=== PATIENT | female | born 1960 | race Caucasian/White ===

== ENCOUNTER 2020-04-12 07:05 | Outpatient (NON) | payer BC, SELFPAY ==
[2020-04-12 14:38] LABS: Influenza Control Positive
[2020-04-12 21:50] LABS: SARS-CoV-2 RNA PCR Positive
== END 2020-04-12 07:06 ==
LOC: ANHCOVIDDT 07:05
PROVIDERS: PCP Family Medicine; Visit Provider Family Medicine
DX: U07.1 COVID-19 (principal)
CPT/HCPCS: 87804; C9803; U0003; U0005

== ENCOUNTER 2020-05-06 16:00 | Outpatient (CLI) | payer BC, SELFPAY ==
--- NOTE | ~2020-05-06 | MM_ITS ---
EXAMINATION: MM screening ned BI w bhumi HISTORY: Screening mammogram TECHNIQUE: Craniocaudal and mediolateral oblique 3-D tomosynthesis images were obtained and synthetic 2-D images were generated. CAD analysis was submitted and interpreted. COMPARISON: 03/01/2019, 01/02/2018, 10/07/2016, 08/28/2015, 06/07/2014, 06/05/2013, 05/18/2012, 04/07/2011, , 06/20/2007 bilateral digital screening mammogram examinations BREAST PARENCHYMAL COMPOSITION: There are scattered areas of fibroglandular density. FINDINGS: There is a biopsy marker posteriorly in the outer mid left breast; history of prior benign left breast biopsy. Stable mild fibroglandular asymmetry. There is no evidence of suspicious mass, ca lcification, or architectural distortion to suggest malignancy in either breast. There has been no valdivia spicious interval change. IMPRESSION: 1. No mammographic evidence of malignancy. 2. Recommend routine screening mammography in one year. BI-RADS Category 2: Benign finding(s). Reviewed, dictated and finalized at location A. [employer]
== END 2020-05-06 16:01 | disposition home or self-care (01) ==
PROVIDERS: PCP Family Medicine; Visit Provider Nurse Practitioner
DX: Z12.31 Encounter for screening mammogram for malignant neoplasm of breast (principal)
CPT/HCPCS: 77063; 77067

== ENCOUNTER 2020-10-08 07:01 | Outpatient (CLI) | payer BC, SELFPAY ==
--- NOTE | ~2020-10-08 | MR_ITS ---
EXAMINATION: MR lumbar spine wo con DATE: 10/08/2020 08:27 INDICATION: Lumbar radiculopathy. Low back pain. TECHNIQUE: Magnetic resonance imaging (MRI) of the lumbar spine was performed without intravenous con trast. Sequences included sagittal T2-weighted FSE, sagittal T2-weighted FS FSE, sagittal T1-weighted FSE, and axial T2-weighted FSE. COMPARISON: None FINDINGS: There is 5 mm anterolisthesis of L4 on L5. Vertebral body heights are normal. There is mild ly decreased disc height at L3-L4 and L4-L5. The distal spinal cord signal intensity is normal. The c onus medullaris is at T12-L1. There is a 1.6 cm cyst in right kidney. The following disc levels are s pecifically discussed: L1-L2: The disc does not extend beyond the endplate margin. There is mild right facet joint osteoarth ritis. There is no neural foraminal stenosis. There is no central canal stenosis. L2-L3: The disc is bulging. There is mild right facet joint osteoarthritis. There is mild bilateral n eural foraminal stenosis. There is mild central canal stenosis. L3-L4: The disc is bulging. There is moderate right and severe left facet joint osteoarthritis. There is mild bilateral neural foraminal stenosis. There is mild central canal stenosis. L4-L5: The disc is bulging and has an annular fissure. There is severe bilateral facet joint osteoart hritis. There is a 4 mm synovial cyst from the left facet joint in the central spinal canal. There is moderate bilateral neural foraminal stenosis. There is severe central canal stenosis. L5-S1: The disc does not extend beyond the endplate margin. There is severe bilateral facet joint ost eoarthritis. There is no neural foraminal stenosis. There is no central canal stenosis. IMPRESSION: 1. Severe central canal stenosis at L4-L5. Otherwise moderate lumbar spondylosis. Reviewed, dictated and finalized at location A. IMPRESSION: 1. Severe central canal stenosis at L4-L5. Otherwise moderate lumbar spondylosi s.
--- NOTE | ~2020-10-08 | MR_ITS ---
EXAMINATION: MR brain/brain stem wo/w con DATE: 10/08/2020 08:26 INDICATION: Headache. TECHNIQUE: Magnetic resonance imaging (MRI) of the brain and brainstem was performed without and with 14 mL MultiHance intravenous contrast. Sequences included sagittal and axial T1-weighted FSE, axial diffusion-weighted FS EPI, axial T2*-weighted GRE, axial T2-weighted FLAIR Propeller, and axial T2-we ighted Propeller. Postcontrast sequences included axial and coronal T1-weighted FSE. Apparent diffusi on coefficient (ADC) maps were created. COMPARISON: None. FINDINGS: There is no intracranial hemorrhage, acute infarction, or abnormal intracranial mass lesion . The ventricles are normal in size. The paranasal sinuses are clear. The orbits are normal. The mast oid air cells are normal. IMPRESSION: 1. Normal brain. Reviewed, dictated and finalized at location A. IMPRESSION: 1. Normal brain.
[2020-10-08 07:39] LABS: Estimated Glomerular Filt Rate 57
== END 2020-10-08 07:02 | disposition home or self-care (01) ==
LOC: ANHIMG 07:07
PROVIDERS: PCP Internal Medicine; Visit Provider Internal Medicine
DX: R51.9 Headache, unspecified (principal); M54.2 Cervicalgia; M54.5 Low back pain; M47.896 Other spondylosis, lumbar region
CPT/HCPCS: 70553; 72148; A9577

== ENCOUNTER 2020-10-17 07:47 | Outpatient (CLI) | payer BC, SELFPAY | END 2020-10-17 07:48 | disposition home or self-care (01) | LOC: ANHBWCAUD 07:48 | PROVIDERS: PCP Internal Medicine; Visit Provider Internal Medicine | DX: H93.12 Tinnitus, left ear (principal); H90.42 Sensorineural hearing loss, unilateral, left ear, with unrestricted hearing on the contralateral side | CPT/HCPCS: 92557; 92567 ==

== ENCOUNTER 2020-12-16 13:20 | Outpatient (CLI) | payer BC, SELFPAY ==
--- NOTE | ~2020-12-16 | MMUS_ITS ---
EXAMINATION: MM diagnostic ned RT w bhumi, US breast RT limited HISTORY: Palpable lump in the upper outer quadrant of the right breast TECHNIQUE: Craniocaudal, mediolateral, and mediolateral oblique 3-D tomosynthesis images of the right breast were performed and synthetic 2-D images were generated. CAD analysis was submitted and interp reted. High resolution limited right breast ultrasound was performed. COMPARISON: 05/06/2020, 03/05/2019, 01/02/2018 BREAST PARENCHYMAL COMPOSITION: There are scattered areas of fibroglandular density. FINDINGS: MAMMOGRAPHIC FINDINGS: There is no evidence of suspicious mass, calcification, or architectural distortion right malignancy. There has been no suspicious interval change. No mammographic correlate is identified for the report ed palpable abnormality of concern. ULTRASOUND: There is no evidence of focal abnormal solid or cystic mass in the vicinity of the reported palpable abnormality of concern. IMPRESSION: 1. No specific mammographic or sonographic correlate is identified for the reported palpable abnormal ity of concern. Further evaluation at this time should be based on clinical assessment. Continued fol low-up physical examination is recommended. 2. Recommend routine screening mammography. BI-RADS Category 1: Negative Reviewed, dictated and finalized at location A. IMPRESSION: 1. No specific mammographic or sonographic correlate is identified for the repo rted palpable abnormality of concern. Further evaluation at this time should be based on clinical assessment. Continued follow-up physical examination is kennedy mmended. 2. Recommend routine screening mammography. BI-RADS Category 1: Negative
== END 2020-12-16 13:21 | disposition home or self-care (01) ==
LOC: ANHIMG 13:22
PROVIDERS: PCP Internal Medicine; Visit Provider Nurse Practitioner
DX: N63.10 Unspecified lump in the right breast, unspecified quadrant (principal)
CPT/HCPCS: 76642; 77061; 77065; G0279

== ENCOUNTER 2021-05-26 00:03 | Day surgery (SDC) | payer BC, SELFPAY ==
[2021-05-13 13:23] VITALS: BMI 29.2
[2021-05-26 06:53] VITALS: BP 151/93; PULSE 87; RESP 18; TEMP 36.7; O2SAT 98
[2021-05-26] MEDS: LACTATED RINGERS 1,000 ML 150 ML IV CONT (07:03)
--- NOTE | 2021-05-26 07:35 | WPDANESEPPF ---
Anes - Initial Pre Proc Eval Procedure: Operation Date: 05/26/21 08:00 Proposed Procedures p Screening Colonoscopy - John Lindo MD Date/Time: 05/26/21 07:35 Surgeon: John Lindo MD Pre Op Diagnosis: neoplasm screening Patient Data Age: 61 Gender: F Height: 1.57 m Weight: 76.8 kg Last Vital Signs Temp 98.1 F 05/26/21 06:53 Pulse 87 05/26/21 06:53 Resp 18 05/26/21 06:53 BP 151/93 H 05/26/21 06:53 Pulse Ox 98 05/26/21 06:53 Allergies Allergy/AdvReac Type Severity Reaction Status Date / Time Contrast Media Allergy Intermediate RASH Uncoded 05/26/21 06:50 Home Medications Medication Instructions Recorded Confirmed Type alprazolam 0.25 mg tablet 0.25 mg PO TID PRN 04/27/19 05/26/21 History calcium carbonate 600 mg calcium 600 mg PO BID tablet 04/27/19 05/26/21 History (1,500 mg) tablet albuterol sulfate 90 mcg/actuation 2 puff INHALATION Q4H PRN #18 g 04/11/20 05/26/21 Rx aerosol inhaler azithromycin 250 mg tablet See Rx Instructions PO .COMPLEX #6 04/11/20 05/26/21 Rx tablet metoprolol succinate 50 mg 50 mg PO DAILY #90 tablet 05/29/20 05/26/21 Rx tablet,extended release 24 hr atorvastatin 20 mg PO DAILY 05/13/21 05/13/21 History ergocalciferol (vitamin D2) 50,000 unit PO WEEKLY 05/13/21 05/13/21 History escitalopram oxalate 10 mg PO DAILY 05/13/21 05/13/21 History Patient hx anesthesia problems: none Family hx anesthesia problems: none Results Review: All pre-operative results and documents have been reviewed as part of the pre-operative evaluation. [facility] Past Medical History Medical History (Updated 05/26/21 @ 07:36 by Cory Andino MD) Anxiety H/O renal cell cancer Hyperlipidemia Family History Family History (Updated 11/07/14 @ 12:57 by DOCTOR UNKNOWN) Sibling Family history of malignant neoplasm Father Family history of elevated blood lipids Malignant neoplasm of prostate Other Hypertension Social History Social History Smoking status: Never smoker Smoking end date: 03/28/92 Alcohol intake: never Substance use: never Substance use type: does not use Living arrangements: with family Spiritual care concerns: No Anes - Eval Final PreProcedure Day of Procedure 05/26/21 07:35 Patient weight: obese Heart: regular rate and rhythm Lungs: clear to auscultation Airway: Mallampati scale class II Neurological: alert and oriented Last oral intake: >/= 8 hours ASA classification: III Emergent: no Anesthetic plan: proceed Anesthesia type and monitoring: general GIVS and standard monitoring Results Review: All pre-operative results and documents have been reviewed as part of the pre-operative evaluation. Informed Consent: The patient's anesthetic plan and its attendant risks and benefits were discussed with the patient/family/POA. Questions were solicited and answers provided to the satisfaction of the patient/family/POA.
--- NOTE | 2021-05-26 07:59 | PM.HPGS ---
History of Present Illness History of Present Illness Consent: Risks, benefits, and alternatives have been discussed and questions answered. Patient agrees to proceed with procedure. Chief complaint: neoplasm screening Narrative: Maria L Apodaca is a 61 year old female with last colonoscopy 10 years ago Review of Systems Constitutional: Constitutional: Denies headache(s) and Denies weakness Eyes: Eyes: Denies blurry vision ENT: Reports Normal hearing present, Denies headache(s) and Denies neck pain Cardiovascular: Cardiovascular: Denies chest pain and Denies dyspnea Respiratory: Respiratory: Denies dyspnea Gastrointestinal: Gastrointestinal: Reports no additional gastrointestinal complaints Genitourinary: Genitourinary: Denies dysuria Musculoskeletal: Musculoskeletal: Denies neck pain Integumentary/Breasts: Skin/Breast: Denies dry skin Neurologic: Reports Normal hearing present, Denies headache(s) and Denies weakness Psychiatric: Psychiatric: Denies anxiety Endocrine: Endocrine: Denies change in body appearance Hematologic/Lymphatic: Hematologic/Lymphatic: Denies easy bleeding Allergic/Immunologic: Allergic/Immunologic: Denies urticaria PMF Past Medical History Medical History (Updated 05/26/21 @ 08:00 by John Lindo MD) Anxiety Colon cancer screening H/O renal cell cancer Hyperlipidemia Family History Family History (Updated 11/07/14 @ 12:57 by DOCTOR UNKNOWN) Sibling Family history of malignant neoplasm Father Family history of elevated blood lipids Malignant neoplasm of prostate Other Hypertension Social History Social History Smoking status: Never smoker Smoking end date: 03/28/92 Alcohol intake: never Substance use: never Substance use type: does not use Living arrangements: with family Spiritual care concerns: No Meds Home Medications and Allergies Home Medications Medication Instructions Recorded Confirmed Type alprazolam 0.25 mg tablet 0.25 mg PO TID PRN 04/27/19 05/26/21 History calcium carbonate 600 mg calcium 600 mg PO BID tablet 04/27/19 05/26/21 History (1,500 mg) tablet albuterol sulfate 90 mcg/actuation 2 puff INHALATION Q4H PRN #18 g 04/11/20 05/26/21 Rx aerosol inhaler azithromycin 250 mg tablet See Rx Instructions PO .COMPLEX #6 04/11/20 05/26/21 Rx tablet metoprolol succinate 50 mg 50 mg PO DAILY #90 tablet 05/29/20 05/26/21 Rx tablet,extended release 24 hr atorvastatin 20 mg PO DAILY 05/13/21 05/13/21 History ergocalciferol (vitamin D2) 50,000 unit PO WEEKLY 05/13/21 05/13/21 History escitalopram oxalate 10 mg PO DAILY 05/13/21 05/13/21 History Allergies Allergy/AdvReac Type Severity Reaction Status Date / Time Contrast Media Allergy Intermediate RASH Uncoded 05/26/21 06:50 Vital Signs Vital Signs - 24 hr 05/26/21 06:53 Temperature 98.1 F Pulse Rate 87 Respiratory Rate 18 Blood Pressure 151/93 H Pulse Oximetry 98 Exam Const: General: comfortable and no acute distress HENMT: General nose exam: Normal nares present Eyes: General: appearance normal, both eyes and all related structures Neck: Neck: no JVD Resp: Auscultation: clear to auscultation bilaterally Cardio: Rate: regular rate Rhythm: regular rhythm GI: Inspection: non-distended GI Palp: Yes Soft to palpation Skin: General skin exam: normal color Neuro: General: gait normal Speech: normal speech Extrem: General: normal to inspection Psych: Mental Status: mental status grossly normal Assessment and Plan Assessment and plan (1) Colon cancer screening: Code(s): Z12.11 - Encounter for screening for malignant neoplasm of colon Status: Acute Assessment and Plan: colonoscopy
[2021-05-26 08:19] VITALS: BP 112/57; PULSE 78; RESP 20; O2SAT 98
[2021-05-26 08:29] VITALS: BP 128/73; PULSE 79; RESP 16; O2SAT 100
[2021-05-26 08:39] VITALS: BP 140/80; PULSE 74; RESP 15; O2SAT 100
== END 2021-05-26 08:45 | disposition home or self-care (01) ==
PROVIDERS: PCP Internal Medicine; Visit Provider Internal Medicine Gastroenterology
PROC: 0DJD8ZZ Inspection of Lower Intestinal Tract, Via Natural or Artificial Opening Endoscopic (ICD-10-PCS; CPT 45378; principal; 2021-05-26 08:00)
DX: Z12.11 Encounter for screening for malignant neoplasm of colon (principal); K64.8 Other hemorrhoids; F41.9 Anxiety disorder, unspecified; E78.5 Hyperlipidemia, unspecified; Z79.51 Long term (current) use of inhaled steroids; Z85.528 Personal history of other malignant neoplasm of kidney; E66.9 Obesity, unspecified; Z68.31 Body mass index [BMI] 31.0-31.9, adult
CPT/HCPCS: 45378; J2704; J7120

== ENCOUNTER → 2021-06-30 17:44 | Outpatient (CLI) | payer BC, SELFPAY ==
--- NOTE | ~2021-06-30 | DEXA_ITS ---
Bone Density Report Name: VAL POWER Age: 61 Sex: Female Ethnicity: White Date of : 1960 Indication: postmenopausal; screening for osteoporosis; hysterectomy; Referring Provider: AAMIR, AVIS Study: Bone densitometry was performed. Exam Date: June 30, 2021 Accession number: [id number] Bone Density: Region BMD T-score Z-score Classification AP Spine (L1-L4) 0.963 -0.8 0.7 Normal Femoral Neck (Left) 0.694 -1.4 -0.1 Osteopenia Total Hip (Left) 0.829 -0.9 0.1 Normal Femoral Neck (Right) 0.680 -1.5 -0.2 Osteopenia Total Hip (Right) 0.836 -0.9 0.2 Normal Total Hip Mean 0.833 -0.9 0.2 Normal World Health Organization criteria for BMD impression classify patients as: Normal (T-score at or above -1.0), Osteopenia (T-score between -1.0 and -2.5), or Osteoporosis (T-score at or below -2.5). 10-year Fracture Risk(1): Major Osteoporotic Fracture 8.0% Hip Fracture 0.7% Reported Risk Factors: [place] (), Neck BMD=0.680, BMI=31.8 (1) FRAX(R) Version 3.08. Fracture probability calculated for an untreated patient. Fracture probability may be lower if the patient has received treatment. Clinical Information Provided by Patient: Has used the following medications: Vitamin D Has the following medical conditions: Hysterectomy, LT RENAL CA Patient maximum height was 62 Menopause Age: 51 No regular weight bearing exercise Drinks caffeinated beverages Onset of menses at age 12 Number of children 1 Impression: The patient has low bone mass, based on the Right Femoral Neck T-score. The patient has an estimated ten-year risk of hip fracture of 0.7% and an estimated ten-year risk of major fracture of 8%, based on the WHO FRAX algorithm. Discussion: BONE DENSITY IS LOW AT ONE OR MORE SKELETAL SITES. This patient's lowest T-score is low at one or more skeletal sites. It meets the World Health Organization's (WHO) criteria for ?low bone mass? (T-score between -1.0 and -2.5). The patient's 10-year risk of fracture as calculated by FRAX is less than the threshold where pharmacological therapy is recommended by the National Osteoporosis Foundation (NOF). However, all treatment decisions require clinical judgment and consideration of individual patient factors, including patient preferences, comorbidities, previous drug use, risk factors not captured in the FRAX model (e.g., frailty, falls, vitamin D deficiency, increased bone turnover, interval significant decline in bone density) and possible under or overestimation of fracture risk by FRAX. The patient should follow a healthful lifestyle (good nutrition with adequate calcium and vitamin D, and appropriate weight-bearing exercise). Follow-Up: Consider repeating this study in 2 to 3 years to reassess this patient's status, or sooner if there
== END ==
PROVIDERS: PCP Internal Medicine; Visit Provider Nurse Practitioner
DX: M85.851 Other specified disorders of bone density and structure, right thigh (principal); M85.852 Other specified disorders of bone density and structure, left thigh
CPT/HCPCS: 77080

== ENCOUNTER → 2021-08-14 14:15 | Outpatient (CLI) | payer BC, SELFPAY ==
--- NOTE | ~2021-08-14 | MM_ITS ---
EXAMINATION: MM screening [facility] BI w bhumi HISTORY: Screening mammogram TECHNIQUE: Craniocaudal and mediolateral oblique 3-D tomosynthesis images were obtained and synthetic 2-D images were generated. CAD analysis was submitted and interpreted. COMPARISON: 12/16/2020, 05/06/2020, 03/05/2019 BREAST PARENCHYMAL COMPOSITION: There are scattered areas of fibroglandular density. FINDINGS: There is no suspicious mass, calcification, or architectural distortion to suggest malignan cy in either breast. There has been no suspicious interval change. IMPRESSION: 1. No mammographic evidence of malignancy. 2. Recommend routine screening mammography in one year. BI-RADS Category 1: Negative Reviewed, dictated and finalized at location A.
== END ==
PROVIDERS: PCP Internal Medicine; Visit Provider Nurse Practitioner
DX: Z12.31 Encounter for screening mammogram for malignant neoplasm of breast (principal)
CPT/HCPCS: 77063; 77067

== ENCOUNTER 2022-01-28 12:55 | Outpatient (CLI) | payer BC, SELFPAY ==
--- NOTE | ~2022-01-28 | MMUS_ITS ---
EXAMINATION: MM diagnostic ned RT w bhumi, US breast RT limited HISTORY: Probable right breast abnormality. TECHNIQUE: Additional 3-D tomosynthesis images of the right breast were performed and synthetic 2-D i mages were generated. CAD analysis was submitted and interpreted. High resolution Limited right breas t ultrasound was performed. COMPARISON: Comparison to multiple prior studies sequentially, with oldest reviewed study dated 10/07. BREAST PARENCHYMAL COMPOSITION: Breast composed of scattered areas of fibroglandular density FINDINGS: MAMMOGRAPHIC FINDINGS: There are no suspicious masses, calcifications or architectural distortion in the right breast to sug gest malignancy. ULTRASOUND: Limited right breast ultrasound: Normal heterogeneous echotexture without focal solid or cystic mass. IMPRESSION: 1. No evidence for malignancy in the right breast. 2. Routine yearly screening mammogram and regular clinical breast examination are recommended. BI-RADS Category 1: Negative Reviewed, dictated and finalized at location A. IMPRESSION: 1. No evidence for malignancy in the right breast. 2. Routine yearly screening mammogram and regular clinical breast examination a re recommended. BI-RADS Category 1: Negative
== END 2022-01-28 12:56 | disposition home or self-care (01) ==
PROVIDERS: PCP Internal Medicine; Visit Provider Obstetrics & Gynecology Gynecology
DX: N63.10 Unspecified lump in the right breast, unspecified quadrant (principal)
CPT/HCPCS: 76642; 77061; 77065; G0279

== ENCOUNTER 2022-05-02 09:31 | Emergency (ER) | payer BC, SELFPAY ==
[2022-05-02 09:44] VITALS: BP 153/80; PULSE 77; RESP 16; TEMP 37.2; O2SAT 97
--- NOTE | 2022-05-02 10:50 | ED.URI ---
HPI - URI/Sore Throat General Chief Complaint: Upper Respiratory Infection Stated Complaint: cough,facial pain,ears hurts Time Seen by Provider: 05/02/22 10:50 Source: patient, RN notes reviewed and old records reviewed Mode of arrival: ambulatory Limitations: no limitations History of Present Illness HPI Narrative: 62 year old female presents to [facility] care with complaints of 4 day duration of pressure in ears and sinus congestive with cough, Patient reports that she mainly has pressure in the right side of her face and under her right eye with some discomfort in the right neck gland. Patient reports that her cough is productive at times of yellowish mucous and her sinus drainage is also yellow tinged. Patient reports that she has taken some OTC medications and Tylenol for her symptoms without resolution of symptoms. Patient reports no known fevers or chills or body aches or shortness of breath. MD elicited complaint: cough, rhinorrhea, nasal congestion, sinus pain and other ( ear pressure) Pertinent past history: sinusitis Onset (ago): day(s) (4) Pain scale (0-10): 3 Description of mucous: yellow Able to tolerate fluids by mouth: Yes Treatments prior to arrival: acetaminophen and cold medicine Related Data Home Medications Medication Instructions Recorded Confirmed calcium carbonate 600 mg calcium 600 mg PO BID 04/27/19 05/02/22 (1,500 mg) tablet (Calcium) atorvastatin 20 mg tablet 20 mg PO DAILY 05/13/21 05/02/22 ergocalciferol (vitamin D2) 1,250 50,000 unit PO WEEKLY 05/13/21 05/02/22 mcg (50,000 unit) capsule escitalopram oxalate 10 mg tablet 10 mg PO DAILY 05/13/21 05/02/22 Allergies Allergy/AdvReac Type Severity Reaction Status Date / Time Contrast Media Allergy Intermediate RASH Uncoded 05/02/22 09:52 Review of Systems Review of Systems: CONSTITUTIONAL: Denies malaise, chills, sweats, or fever. EYES: Denies visual changes, redness, or discharge. ENT: Reports rhinorrhea, congestion, sinus pain, bilateral otalgia no sore throat. CARDIOVASCULAR: Denies chest pain, palpitations, or edema. RESPIRATORY: Reports cough.? Denies dyspnea. GASTROINTESTINAL: Denies abdominal pain, nausea, vomiting, diarrhea SKIN: Denies rash or itching. MUSCULOSKELETAL: Denies myalgia. NEUROLOGIC: Reports right sided frontal headache. All systems reviewed & are unremarkable except as noted in HPI and below PMFSH Past Medical History Medical History (Updated 05/03/22 @ 00:01 by Coco Varela) Anxiety Colon cancer screening H/O renal cell cancer Hyperlipidemia Surgical History Surgical History (Updated 05/03/22 @ 07:24 by Antonella Fernandez NP) H/O: hysterectomy History of nephrectomy, left partial left nephrectomy renal cell mass Family History Family History (Updated 11/07/14 @ 12:57 by DOCTOR UNKNOWN) Sibling Family history of malignant neoplasm Father Family history of elevated blood lipids Malignant neoplasm of prostate Other Hypertension Social History Social History (Updated 05/03/22 @ 07:28 by Antonella Fernandez NP) Smoking status: Former smoker Smoking end date: 03/28/92 Alcohol intake: never Substance use: never Substance use type: does not use Living arrangements: with family Spiritual care concerns: No Comments At time of signature, agree with nursing past medical, surgical, social and family history. There is no relevant family history pertinent to the presenting complaint Exam Narrative: GENERAL: Well-appearing, well-nourished, and in no acute distress. HEAD: Normocephalic EYES: PERRLA, conjunctivae clear ENT: Nares clear, turbinates edematous and erythematous, yellow tinged discharge. Mucous membranes moist.facial pressure especially right side. TM pearly godoy with dull light reflex bilaterally; no tragal tenderness. Oropharynx erythematous without lesions. Tonsils not enlarged and without exudate, no drooling, no hoarseness, no trismus, uvula
== END 2022-05-02 11:05 | disposition home or self-care (01) ==
PROVIDERS: Emergency Provider Registered Nurse; PCP Internal Medicine
DX: J32.9 Chronic sinusitis, unspecified (principal); Z87.891 Personal history of nicotine dependence; F41.9 Anxiety disorder, unspecified; E78.5 Hyperlipidemia, unspecified; Z85.528 Personal history of other malignant neoplasm of kidney; Z90.5 Acquired absence of kidney
CPT/HCPCS: 99213; G0463

== ENCOUNTER 2023-03-30 13:09 | Outpatient (CLI) | payer BC, SELFPAY ==
--- NOTE | ~2023-03-30 | MM_ITS ---
EXAMINATION: MM screening [facility] BI w bhumi HISTORY: Screening mammogram TECHNIQUE: Craniocaudal and mediolateral oblique 3-D tomosynthesis images were obtained and synthetic 2-D images were generated. CAD analysis was submitted and interpreted. COMPARISON: 01/28/2022, 08/14/2021, 12/16/2020, 05/06/2020 BREAST PARENCHYMAL COMPOSITION: There are scattered areas of fibroglandular density. FINDINGS: No suspicious mass, calcification, or architectural distortion are identified in either maryanne ast to suggest malignancy. There has been no suspicious interval change. IMPRESSION: 1. No mammographic evidence of malignancy. 2. Recommend routine screening mammography in one year. BI-RADS Category 1: Negative Reviewed, dictated and finalized at location A. O [facility]ESSEL [facility]
== END 2023-03-30 13:10 | disposition home or self-care (01) ==
LOC: ANHIMG 13:13
PROVIDERS: PCP Internal Medicine; Visit Provider Nurse Practitioner
DX: Z12.31 Encounter for screening mammogram for malignant neoplasm of breast (principal)
CPT/HCPCS: 77063; 77067

== ENCOUNTER 2023-04-01 10:09 | Outpatient (CLI) | payer BC, SELFPAY ==
--- NOTE | 2023-04-01 | EST_ITS ---
Patient Info Name: Maria L Apodaca Age: 63 years : 1960 Gender: Female Ht: 61 in Wt: 174 lbs BSA: 1.88 m2 Exam Date: 04/01/2023 10:53 AM Exam Location: Echo Lab Patient Status: Outpatient Admit Date: 04/01/2023 Staff Ordering Physician: Veronica, Katie Millard APRN Attending Provider: Veronica, Katie Millard APRN Exercise Technologist: Melany Sears RDCS Exercise Physician: Vivek Nicholas DO Exam Type: CA stress test treadmill w NM Study Info Indications R06.00 - Dyspnea, unspecified A nuclear stress test was performed. Summary 1. 1. Negative Tristan exercise stress test for ischemic ST changes by ECG criteria. 2. 2. Reduced functional capacity, achieving 7 METs of workload. 3. 3. Baseline hypertension with hypertensive response to exercise. 4. 4. Appropriate HR response to exercise. 5. 5. Appropriate HR recovery at 1 minute post exercise. 6. 6. Nuclear scan to follow and will be reported separately. Please correlate with it. 7. 7. Patient informed of the above results. Protocol: Tristan Stress ECG Details Stage: REST Duration (min): 2 min : 21 sec Speed (mph): 0.0 Grade (%): 0 HR (bpm): 61 SBP (mmHg): 180 DBP (mmHg): 92 METS: --- Stage: REST Duration (min): 4 min : 12 sec Speed (mph): 0.0 Grade (%): 0 HR (bpm): 76 SBP (mmHg): 180 DBP (mmHg): 92 METS: --- Stage: STAGE 1 Duration (min): 1 min : 0 sec Speed (mph): 1.7 Grade (%): 10 HR (bpm): 94 SBP (mmHg): 180 DBP (mmHg): 92 METS: --- Stage: STAGE 1 Duration (min): 2 min : 0 sec Speed (mph): 1.7 Grade (%): 10 HR (bpm): 114 SBP (mmHg): 180 DBP (mmHg): 92 METS: --- Stage: STAGE 1 Duration (min): 3 min : 0 sec Speed (mph): 1.7 Grade (%): 10 HR (bpm): 123 SBP (mmHg): 254 DBP (mmHg): 108 METS: --- Stage: STAGE 2 Duration (min): 1 min : 0 sec Speed (mph): 2.5 Grade (%): 12 HR (bpm): 132 SBP (mmHg): 239 DBP (mmHg): 110 METS: --- Stage: STAGE 2 Duration (min): 1 min : 30 sec Speed (mph): 2.5 Grade (%): 12 HR (bpm): 138 SBP (mmHg): 239 DBP (mmHg): 110 METS: --- Stage: RECOVERY Duration (min): 0 min : 29 sec Speed (mph): 0.0 Grade (%): 0 HR (bpm): 136 SBP (mmHg): 251 DBP (mmHg): 109 METS: --- Stage: RECOVERY Duration (min): 1 min : 29 sec Speed (mph): 0.0 Grade (%): 0 HR (bpm): 87 SBP (mmHg): 251 DBP (mmHg): 109 METS: --- Stage: RECOVERY Duration (min): 2 min : 29 sec Speed (mph): 0.0 Grade (%): 0 HR (bpm): 64 SBP (mmHg): 251 DBP (mmHg): 109 METS: --- Stage: RECOVERY Duration (min): 3 min : 29 sec Speed (mph): 0.0 Grade (%): 0 HR (bpm): 77 SBP (mmHg): 215 DBP (mmHg): 103 METS: --- Stage: RECOVERY Duration (min): 4 min : 29 sec Speed (mph): 0.0 Grade (%): 0 HR (bpm): 71 SBP (mmHg): 215 DBP (mmHg): 103 METS: --- Stage: RECOVERY Duration (min): 5 min : 29 sec Speed (mph): 0.0 Grade (%): 0
--- NOTE | ~2023-04-01 | NM_ITS ---
EXAMINATION: NM stress w perf spect multi DATE: 04/01/2023 11:40 INDICATION: Dyspnea TECHNIQUE: Rest images were obtained following intravenous administration of 10 mCi Tc99m tetrofosmin (Myoview). The patient performed an exercise activity. At peak exercise, 33.7 mCi Tc99m tetrofosmin (Myoview) was administered intravenously, and stress images were obtained. Data was reconstructed int o short axis and horizontal and vertical long axis SPECT images. Gated SPECT images were also obtaine d. COMPARISON: None. FINDINGS: There is normal left ventricular perfusion without definite evidence of reversible or fixed perfusion abnormality to suggest ischemia or infarction. There is normal left ventricular chamber size, wall motion and ejection fraction. Left ventricular ejection fraction measures >70%. IMPRESSION: 1. Normal myocardial perfusion at rest and during stress. 2. Left ventricular ejection fraction measuring >70%. Reviewed, dictated and finalized at location A. STATION SERVICE ATTENDANT
== END 2023-04-01 10:10 | disposition home or self-care (01) ==
LOC: ANHCARD 10:12
PROVIDERS: PCP Internal Medicine; Visit Provider Nurse Practitioner
DX: R06.00 Dyspnea, unspecified (principal)
CPT/HCPCS: 78452; 93017; A9502

== ENCOUNTER 2023-06-14 07:55 | Outpatient (CLI) | payer BC, SELFPAY ==
--- NOTE | ~2023-06-14 | US_ITS ---
EXAMINATION: US retroperitoneal duplex ltd DATE: 06/14/2023 09:09 INDICATION: Atherosclerosis of renal artery TECHNIQUE: Multiple grayscale, color Doppler, and pulsed Doppler images of the kidneys and renal tommy herman were obtained. COMPARISON: None. FINDINGS: The aorta peak systolic velocity is 110 cm/s. The right renal artery peak systolic velocity is 92 cm/ s in the proximal segment, 104 cm/s in the mid segment, and 91 cm/s in the distal segment. The left r enal artery peak systolic velocity is 63 cm/s in the proximal segment, 57 cm/s in the mid segment, an d 53 cm/s in the distal segment. IMPRESSION: 1. No Doppler evidence of renal artery stenosis. Reviewed, dictated and finalized at location A.
== END 2023-06-14 07:56 | disposition home or self-care (01) ==
PROVIDERS: PCP Internal Medicine; Visit Provider Nurse Practitioner
DX: I70.1 Atherosclerosis of renal artery (principal)
CPT/HCPCS: 93976

== ENCOUNTER 2024-01-20 15:45 | Outpatient (CLI) | payer BC, SELFPAY ==
--- NOTE | ~2024-01-20 | MR_ITS ---
MRA brain wo con Ordering provider: Ramiro VillagranMD History: . Trigeminal neuralgia . Comparison: MRI brain performed the same day. Technique: MRA brain without contrast per protocol utilizing 3D time of flight and maximum intensity projection images. FINDINGS: INTERNAL CAROTIDS: Normal caliber and contour without evidence for significant stenosis. ANTERIOR CEREBRAL ARTERIES: Normal caliber and contour without evidence for significant stenosis. MIDDLE CEREBRAL ARTERIES: Normal caliber and contour without evidence for significant stenosis. VISUALIZED DISTAL VERTEBRAL ARTERIES: Normal caliber and contour bilaterally without evidence for sig nificant stenosis. BASILAR ARTERY: Normal caliber and contour without evidence for significant stenosis. POSTERIOR CEREBRAL ARTERIES: Normal caliber and contour without evidence for significant stenosis. POSTERIOR COMMUNICATING ARTERIES: Not well seen due to size. ANEURYSM: None OTHER: Normal. IMPRESSION: No definite abnormality seen. Reviewed, dictated and finalized at location A.
== END 2024-01-20 15:46 | disposition home or self-care (01) ==
LOC: MICIMG 15:47
PROVIDERS: PCP Internal Medicine; Visit Provider Internal Medicine
DX: G50.0 Trigeminal neuralgia (principal)
CPT/HCPCS: 70544

== ENCOUNTER 2024-11-07 15:42 | Outpatient (CLI) | payer BC, SELFPAY ==
--- NOTE | ~2024-11-07 | MM_ITS ---
EXAMINATION: MM screening ned BI w bhumi HISTORY: Screening TECHNIQUE: Craniocaudal and mediolateral oblique 3-D tomosynthesis images were obtained and synthetic 2-D images were generated. CAD analysis was submitted and interpreted. COMPARISON: Comparison to multiple prior studies sequentially, with oldest reviewed study dated 11/2018. BREAST PARENCHYMAL COMPOSITION: Not dense: There are scattered areas of fibroglandular density. FINDINGS: There is no evidence of suspicious mass, calcification, or architectural distortion to sugg est malignancy in either breast. There has been no suspicious interval change. IMPRESSION: 1. No mammographic evidence of malignancy. 2. Recommend routine screening mammography in one year. BI-RADS Category 1: Negative Reviewed, dictated and finalized at location A.
--- OUTSIDE RECORDS SUMMARY | 2024-11-07 15:47 | XMS_ITS | Encounter Summary ---
Author Organization [facility] Healthcare Address [address] [place] [address] Care Team Providers Care Hot Strip Mill Inspector Name Role Phone Laurel Steven MD Primary Care Provider [phone] Reason for Visit * Diagnostic Imaging (Routine) - Closed Specialty Diagnoses / Procedures Referred By Anita bro Referred To Contact Procedures Breast Imaging Screening Outside Reference Sophia Cavazos NP Phone: tel: fax: Referral ID Status Reason Start Date Expiration Date Visits Re quested Visits Authorized [id number] Closed 03/19/2022 04/18/2023 1 1 Encounter Details Date Type Department Care Team (Late st Contact Info) Description 05/06/2020 Hospital Encounter [facility] [address] [place] [address] Social History Tobacco Use Types Packs/Day Years Used Date Smoking Tobacco: Former Smokeless Tobacco: Never Personal Safety Answer Date Recorded Getting School Help Needed Not on file 04/02 Comments Unknown Sex and Gender Information Value Date Recorded Sex Assigned at Not on file Legal Sex Female 9:09 AM DOG TRAINER Gender Identity Not on file Sexual Orientation Not on file documented as of this encounter Plan of Treatment Not on file documented as of this encounter Procedures Procedure Name Priority Date/Time Associated Diagnosis Comments BREAST IMAGING MG SCREENING OUTSIDE REFERENCE Routine 05/06/2020 12:00 AM DOG TRAINER documented in this encounter Results * Breast Imaging Screening Outside Reference (05/06/2020 12:00 AM DOG TRAINER) Impressions [facility] - 03/19/2022 9:39 AM DOG TRAINER These images are for Reference purposes only and have not been reviewed by [facility] Radiology. There will be no report generated by a [facility] Radiologist. Narrative [facility] - 03/19/2022 9:39 AM DOG TRAINER EXAMINATION: Images For Reference Purposes Only us Sophia Cavazos NP IMG MAMMO PROCEDURES Final Result [facility] documented in this encounter Visit Diagnoses Not on filedocumented in this encounter Care Teams Hot Strip Mill Inspector Relationship Specialty Start Date End Date Laurel Steven MD PCP - General Family Practice 08/16/18 01/25/22 documented as of this encounter
--- OUTSIDE RECORDS SUMMARY | 2024-11-07 15:47 | XMS_ITS | Clinical Summary ---
Author Organization [facility] [place] [address] Address [address] [place] [address] Care Team Providers Care Activity Manager Name Role Phone Gurpreet Villagran MD Primary Care Provider + Allergies Active Allergy Reactions Criticality Noted Date Comments Hay Fever And Allergy Relief Unknown 023 Iodinated Contrast Media Hives,Itching High 12/29/19 14 Iodine Medications atorvastatin (LIPITOR) 20 mg tablet 03/29/2022 Active cholecalciferol (VITAMIN D-3) 50,000 unit capsule Take 1 capsule by mouth daily Active escitalopram (LEXAPRO) 10 mg tablet 03/29/2022 Active estradioL (ESTRACE) 1 mg tablet Take 1 mg by mouth daily Active metoprolol XL (TOPROL-XL) 50 mg extended release tablet 03/29/2022 Acti ve Active Problems Problem Noted Date Diagnosed Date Mass of right breast 04/07/2022 Pain of lower extremity 10/24/2013 Lumbago 10/23/2013 Family History Medical History Relation Name Comments Cancer Father Family history of cancer - (Added by TW Conv) Hyperlipidemia Father High choleste rol - (Added by TW Conv) Hyperlipidemia Mother High choleste rol - (Added by TW Conv) Cancer Sister Family history of malignant neoplasm - (Added by TW Conv) Hyperlipidemia Sister High choleste rol - (Added by TW Conv) Hypertension Sister Family history of hypertension - (Added by TW Conv) Relation Name Status Comments Father Mother Sister Social History Tobacco Use Types Packs/Day Years Used Date Smoking Tobacco: Former Smokeless Tobacco: Never Tobacco Cessation:Counseling Given: Not Answered Personal Safety Answer Date Recorded Getting School Help Needed Not on file 04/02 Comments Unknown Sex and Gender Information Value Date Recorded Sex Assigned at Not on file Legal Sex Female 9:09 AM CIGAR BANDER HAND Gender Identity Not on file Sexual Orientation Not on file Obstetrics History Last Filed Vital Signs Vital Sign Reading Time Taken Comments Blood Pressure 146/74 10/24/2013 11:40 AM CDT Pulse 86 10/24/2013 11:40 AM CDT Temperature - - Respiratory Rate - - Oxygen Saturation - - Inhaled Oxygen Concentration - - Weight 69.4 kg (153 lb) 04/07/2022 9:17 AM CIGAR BANDER HAND Height 157.5 cm (5' 2) 04/07/2022 9:17 AM CIGAR BANDER HAND Body Mass Index 27.98 04/07/2022 9:17 AM CIGAR BANDER HAND Plan of Treatment Health Maintenance Due Date Last Done Comments Breast Cancer Screening-Mammogram 1960 Cervical Cancer Screening 1960 Colon Cancer Screening-Colonoscopy 1960 Depression Screening 1960 Hepatitis C Screening 1960 Hepatitis B Screening 01/26/1978 Regular Well Visit/Exam 18-64 01/26/1978 Zoster Vaccine (1 of 2) 01/26/2010 DTaP/Tdap/Td Vaccine (2 - Td or Tdap) 06/14/2017 06/15/2007 Covid-19 Vaccine (3 - 2023-2 5 season) 2023 09/16/2020, 08/26/2020 Influenza Vaccine (#1) 2024 Pneumococcal vaccine <65 Aged Out No longer eligible based on patient's age to complete this topic Insurance [facility] BLUE [place] ACCESS Care Teams Activity Manager Relationship Specialty Start Date End Date Gurpreet Villagran MD [address] [place] [address] PCP - General Internal Medicine 01/26/22
--- OUTSIDE RECORDS SUMMARY | 2024-11-07 15:47 | XMS_ITS | Clinical Summary ---
Author Organization [facility] Address [address] [place] [address] Care Team Providers Care Student Education Specialist Name Role Phone Ramesh Coronado MD Primary Care Provider [phone] Allergies Active Allergy Reactions Criticality Noted Date Comments Iodinated Contrast Media Hives,Itching High 12/29/19 14 Medications metoprolol succinate (TOPROL XL) 50 mg Extended Release 24 hour tablet Take 50 mg by mouth daily. Active estradiol (ESTRACE) 1 mg tablet Take 1 mg by mouth daily. Active cholecalciferol, vitamin D3, 50,000 unit Capsule Take 1 Cap by mouth daily. Active Active Problems Problem Noted Date Diagnosed Date Left renal mass 01/10/2014 Social History Tobacco Use Types Packs/Day Years Used Date Smoking Tobacco: Never Alcohol Use Standard Drinks/Week Comments Yes 0 (1 standard drink = 0.6 oz pur e alcohol) rare Comments Unknown Sex and Gender Information Value Date Recorded Sex Assigned at Not on file Legal Sex Female 5:59 AM POST ANESTHESIA CARE UNIT NURSE Gender Identity Not on file Sexual Orientation Not on file Occupation Industry Job Start Date Job End Date Not on file Not on file Not on file Not on file Last Filed Vital Signs Vital Sign Reading Time Taken Comments Blood Pressure 139/59 01/13/2014 10:31 AM CDT Pulse 98 01/13/2014 10:31 AM CDT Temperature 36.9 C (98.4 F) 01/13/2014 10:31 AM CDT Respiratory Rate 18 01/13/2014 10:31 AM CDT Oxygen Saturation 100% 01/13/2014 10:31 AM CDT Inhaled Oxygen Concentration - - Weight 66.4 kg (146 lb 6.4 oz) 01/11/2014 10:48 AM CDT Height 157.5 cm (5' 2) 12/28/2013 12:32 PM CDT Body Mass Index 26.78 12/28/2013 12:32 PM CDT Plan of Treatment Health Maintenance Due Date Last Done Comments DTAP/TDAP/TD VACCINES (1 - Tdap) 01/26/1979 HPV/Cotest (21-29) 01/26/1981 CERVICAL CANCER SCREENING 01/26/1990 HPV/Cotest (30-65) 01/26/1990 PAP SMEAR 01/26/1990 BREAST CANCER SCREENING 2000 COLORECTAL SCREENING 01/26/2005 Colorectal Cancer Screening 01/26/2005 FIT-DNA Q 3 years 01/26/2005 FIT/FOBT Q 1 year 01/26/2005 Flex Sig/CT Colonography Q 5 years 01/26/2005 ZOSTER VACCINE (1 of 2) 01/26/2010 INFLUENZA VACCINE (#1) 2024 RSV VACCINE (60+ or ) (1 - 1-dose 75+ series) 01/26/2035 Insurance [employer] / [employer] OPEN ACCESS BCBS BLUE ACCESS/TRUE BLUE PPO Advance Directives For more information, please contact: [phone] * Full Code (Latest Code Status on File) Date Activated Date Inactivated Comments 01/11/2014 7:47 PM 01/13/2014 4:19 PM * Full Code Date Activated Date Inactivated Comments 01/11/2014 10:49 AM 01/11/2014 7:47 PM Care Teams Student Education Specialist Relationship Specialty Start Date End Date Ramesh Coronado MD [address] [place] [address] PCP - General Family Practice 04/15/10
--- OUTSIDE RECORDS SUMMARY | 2024-11-07 15:47 | XMS_ITS | Clinical Summary ---
Author Organization [facility] Address [address] [place] [address] Care Team Providers Care Xray Tech Name Role Phone Ramesh Coronado MD Primary Care Provider [phone] Source Comments [facility],non-owned Affiliates and Associated Physician Practices is amultiple site organization consisting of ambulatory clinics and hospital sitesin [place], [place], [place] and [place]. This disclosure is being madepursuant to the Care Everywhere program and may not contain all information available regarding this patient. Last updated 17.[facility] Medications * Be aware that medications may not be up to date on this document. Alwaysverify current medications with the patient. METOPROLOL SUCCINATE ER PO Acti ve BUPROPION HCL PO Act favian ALPRAZolam (XANAX PO) Active Family History Medical History Relation Name Comments Hypercholesterolemia Father Hypertension Father Hypertension Mother Cancer - Other Sister Relation Name Status Comments Father Mother Sister Social History Tobacco Use Types Packs/Day Years Used Date Smoking Tobacco: Never Comments Unknown Sex and Gender Information Value Date Recorded Sex Assigned at Not on file Legal Sex Female 10:10 AM CDT Gender Identity Not on file Sexual Orientation Not on file Last Filed Vital Signs Vital Sign Reading Time Taken Comments Blood Pressure 146/82 01/17/2016 10:36 AM CDT Pulse 56 01/17/2016 10:36 AM CDT Temperature 36.9 C (98.5 F) 01/17/2016 10:36 AM CDT Respiratory Rate 16 01/17/2016 10:36 AM CDT Oxygen Saturation 98% 01/17/2016 10:36 AM CDT Inhaled Oxygen Concentration - - Weight 53.5 kg (118 lb) 01/17/2016 10:36 AM CDT Height 157.5 cm (5' 2) 01/17/2016 10:36 AM CDT Body Mass Index 21.58 01/17/2016 10:36 AM CDT Plan of Treatment Health Maintenance Due Date Last Done Comments COLOGUARD (AGES 45-75) - COL ON CA SCREENING 1960 COLON MONITORING 1960 COLONOSCOPY - COLON CA SCREENING 1960 CT COLONOGRAPHY - COLON CA SCREENING 1960 Colorectal Cancer Screening 1960 FIT - COLON CA SCREENING 1960 FLEX SIG - COLON CA SCREENING 1960 LIPID TESTING 1960 MAMMOGRAM 1960 HIV SCREENING 01/26/1975 HEPATITIS C SCREENING 01/22/1978 DTAP/TDAP/TD VACCINES (1 - Tdap) 01/26/1979 PNEUMOCOCCAL VACCINE 50+ (1 of 1 - PCV) 01/26/2010 ZOSTER VACCINE (1 of 2) 01/26/2010 COVID-19 VACCINE (1 - 2023-2 5 season) 2023 DEPRESSION SCREENING 03/28/2024 INFLUENZA VACCINE (#1) 2024 Respiratory Syncytial Virus (RSV) Vaccine Pt: or over 60 yrs (1 - 1-dose 75+ series) 01/26/2035 HEPATITIS B VACCINE Aged Out No longe r eligible based on patient's age to complete this topic HIB VACCINE Aged Out No longer eligi ble based on patient's age to complete this topic HPV VACCINE Aged Out No longer eligi ble based on patient's age to complete this topic MENINGOCOCCAL (Group B) VACC INE SHARED DECISION-MAKING Aged Out No longer eligibl e based on patient's age to complete this topic MENINGOCOCCAL GROUPS A/C/Y/W VACCINE Aged Out No longer eligible b ased on patient's age to complete this topic Insurance [facility] Care Teams Xray Tech Relationship Specialty Start Date End Date Ramesh Coronado MD [address] [place] [address] PCP - General Family Medicine 01/17/16
--- OUTSIDE RECORDS SUMMARY | 2024-11-07 15:47 | XMS_ITS | Encounter Summary ---
Author Organization [facility] Healthcare Address [address] [place] [address] Care Team Providers Care Paper Counter Name Role Phone Unavailable Primary Care Provider Unavailabl e Reason for Visit * Diagnostic Imaging (Routine) - Closed Specialty Diagnoses / Procedures Referred By Anita t Referred To Contact Procedures Breast Imaging Screening Outside Reference Sophia Cavazos NP Phone: tel: fax: Referral ID Status Reason Start Date Expiration Date Visits Re quested Visits Authorized [id number] Closed 03/19/2022 04/18/2023 1 1 Encounter Details Date Type Department Care Team (Late st Contact Info) Description 01/02/2018 Hospital Encounter [facility] [address] [place] [address] Social History Tobacco Use Types Packs/Day Years Used Date Smoking Tobacco: Former Smokeless Tobacco: Never Personal Safety Answer Date Recorded Getting School Help Needed Not on file 04/02 Comments Unknown Sex and Gender Information Value Date Recorded Sex Assigned at Not on file Legal Sex Female 9:09 AM ORDER MANAGEMENT SPECIALIST Gender Identity Not on file Sexual Orientation Not on file documented as of this encounter Plan of Treatment Not on file documented as of this encounter Procedures Procedure Name Priority Date/Time Associated Diagnosis Comments BREAST IMAGING MG SCREENING OUTSIDE REFERENCE Routine 01/02/2018 12:00 AM CDT documented in this encounter Results * Breast Imaging Screening Outside Reference (01/02/2018 12:00 AM CDT) Impressions [facility] - 03/19/2022 9:39 AM ORDER MANAGEMENT SPECIALIST These images are for Reference purposes only and have not been reviewed by [facility] Radiology. There will be no report generated by a [facility] Radiologist. Narrative [facility] - 03/19/2022 9:39 AM ORDER MANAGEMENT SPECIALIST EXAMINATION: Images For Reference Purposes Only us Sophia Cavazos NP IMG MAMMO PROCEDURES Final Result [facility] documented in this encounter Visit Diagnoses Not on filedocumented in this encounter
--- OUTSIDE RECORDS SUMMARY | 2024-11-07 15:47 | XMS_ITS | Encounter Summary ---
Author Organization [facility] Healthcare Address [address] [place] [address] Care Team Providers Care Peat Shredder Tender Name Role Phone Unavailable Primary Care Provider Unavailabl e Reason for Visit * Diagnostic Imaging (Routine) - Closed Specialty Diagnoses / Procedures Referred By Anita t Referred To Contact Procedures Breast Imaging Screening Outside Reference Sophia Cavazos NP Phone: tel: fax: Referral ID Status Reason Start Date Expiration Date Visits Re quested Visits Authorized [id number] Closed 03/19/2022 04/18/2023 1 1 Encounter Details Date Type Department Care Team (Late st Contact Info) Description 10/07/2016 Hospital Encounter [facility] [address] [place] [id number] Social History Tobacco Use Types Packs/Day Years Used Date Smoking Tobacco: Former Smokeless Tobacco: Never Personal Safety Answer Date Recorded Getting School Help Needed Not on file 04/02 Comments Unknown Sex and Gender Information Value Date Recorded Sex Assigned at Not on file Legal Sex Female 9:09 AM VITREO RETINAL SURGEON Gender Identity Not on file Sexual Orientation Not on file documented as of this encounter Plan of Treatment Not on file documented as of this encounter Procedures Procedure Name Priority Date/Time Associated Diagnosis Comments BREAST IMAGING MG SCREENING OUTSIDE REFERENCE Routine 10/07/2016 12:00 AM CDT documented in this encounter Results * Breast Imaging Screening Outside Reference (10/07/2016 12:00 AM CDT) Impressions [facility] - 03/19/2022 9:39 AM VITREO RETINAL SURGEON These images are for Reference purposes only and have not been reviewed by [facility] Radiology. There will be no report generated by a [facility] Radiologist. Narrative [facility] - 03/19/2022 9:39 AM VITREO RETINAL SURGEON EXAMINATION: Images For Reference Purposes Only us Sophia Cavazos NP IMG MAMMO PROCEDURES Final Result [facility] documented in this encounter Visit Diagnoses Not on filedocumented in this encounter
--- OUTSIDE RECORDS SUMMARY | 2024-11-07 15:47 | XMS_ITS | Encounter Summary ---
Author Organization [facility] Healthcare Address [address] [place] [address] Care Team Providers Care Vice President Of Business Development Name Role Phone Laurel Steven MD Primary Care Provider [phone]- [phone] Reason for Visit * Diagnostic Imaging (Routine) - Closed Specialty Diagnoses / Procedures Referred By Anita bro Referred To Contact Procedures Breast Imaging Screening Outside Reference Sophia Cavazos NP Phone: tel: fax: Referral ID Status Reason Start Date Expiration Date Visits Re quested Visits Authorized [id number] Closed 03/19/2022 04/18/2023 1 1 Encounter Details Date Type Department Care Team (Late st Contact Info) Description 03/05/2019 Hospital Encounter [facility] [place] [address] Social History Tobacco Use Types Packs/Day Years Used Date Smoking Tobacco: Former Smokeless Tobacco: Never Personal Safety Answer Date Recorded Getting School Help Needed Not on file 04/02 Comments Unknown Sex and Gender Information Value Date Recorded Sex Assigned at Not on file Legal Sex Female 9:09 AM LIGHTING ENGINEER Gender Identity Not on file Sexual Orientation Not on file documented as of this encounter Plan of Treatment Not on file documented as of this encounter Procedures Procedure Name Priority Date/Time Associated Diagnosis Comments BREAST IMAGING MG SCREENING OUTSIDE REFERENCE Routine 03/05/2019 12:00 AM LIGHTING ENGINEER documented in this encounter Results * Breast Imaging Screening Outside Reference (03/05/2019 12:00 AM LIGHTING ENGINEER) Impressions [facility] - 03/19/2022 9:39 AM LIGHTING ENGINEER These images are for Reference purposes only and have not been reviewed by [facility] Radiology. There will be no report generated by a [facility] Radiologist. Narrative [facility] - 03/19/2022 9:39 AM LIGHTING ENGINEER EXAMINATION: Images For Reference Purposes Only us Sophia Cavazos NP IMG MAMMO PROCEDURES Final Result [facility] documented in this encounter Visit Diagnoses Not on filedocumented in this encounter Care Teams Vice President Of Business Development Relationship Specialty Start Date End Date Laurel Steven MD PCP - General Family Practice 08/16/18 01/25/22 documented as of this encounter
== END 2024-11-07 15:43 | disposition home or self-care (01) ==
LOC: ANHIMG 15:46
PROVIDERS: PCP Internal Medicine; Visit Provider Nurse Practitioner
DX: Z12.31 Encounter for screening mammogram for malignant neoplasm of breast (principal)
CPT/HCPCS: 77063; 77067